=== PATIENT | female | born 1990 ===

== ENCOUNTER 2017-08-01 20:16 | Emergency (ER) | payer OTHER ==
[~2017-08-01] VITALS: Ht 154.9 cm; Wt 52.2 kg
[~2017-08-01 20:16] MED LIST: CAVAN-FOLATE D1 EACH PO; NAPR500T14 PO; OXYC1TAB9 PO
[2017-08-02] MEDS ORDERED: ZANTAC300 MG PO ×2 (00:21→00:26)
== END 2017-08-02 00:47 | disposition home or self-care (01) ==
LOC: ER 20:16 → EMR PED 20:21 → ER 20:21
DX: K29.70 Gastritis, unspecified, without bleeding (principal)